=== PATIENT | female | born 1940 | race Caucasian/White ===

== ENCOUNTER → 2017-12-26 | Outpatient (CLI) | payer MEDICARE ==
[~2017-12-26] MED LIST: ACETAMINOPHEN-1 EAC1 PO; ACETAMINOPHEN-120 ML PO; ALENDRONATE SOD70 MG PO; AMLODIPINE BESYL5 MG; AMOXICILLIN875 MG PO; BIOTIN2500 MCG PO; CELEXA 10 MG TA10 M1 PO; CIPROFLOXACIN500 M1 PO; COZAAR 50 MG TA50 M1; ESTRADIOL 1 MG T1 M1 PO; FISH OIL 1,001000 M2 PO; IBUPROFEN200 M2 PO; MIRALAX17 GM PO; MOBIC15 MG PO; MULTIVITAMINS1 EAC7 PO; NEXIUM40 MG PO; OMEPRAZOLE20 M2 PO; OXYBUTYNIN 5 MG5 M2 PO; PERCOCET 5-3251 EACH PO; PROAIR HFA8.5 GM IH; PROAIR HFA8.5 GM INH; PROZAC20 MG PO; PYRIDIUM200 MG PO; TRIAMTERENE-HC1 EAC2 PO; VANCO 1.51.5 GM/250 IV; VITAMIN D400 UNI1 PO; ZOFRAN ODT4 MG PO; ZPAK PO
[2017-12-26 09:37] LABS: ABSOLUTE EOSINOPHILS 0.1 thou/uL (0.0-0.7); ABSOLUTE MONOCYTES 0.4 thou/uL (0.0-1.2); ABSOLUTE NEUTROPHILS 2.9 thou/uL (1.6-8.1); EOSINOPHILS 2.8 %; HEMATOCRIT 41.7 % (37.0-47.0); HEMOGLOBIN 13.9 gm/dL (12.0-15.0); LYMPHOCYTES 23.1 %; MCH 31.3 pg (26.0-34.0); MCHC 33.3 g/dL (28.0-37.0); MCV 94.2 fL (80.0-100.0); MONOCYTES 8.1 %; MPV 8.1 fl. (7.2-11.1); NUCLEATED RBCS 0 /100WBC; PLATELET COUNT* 303 thou/uL (150-400); RBC 4.43 mil/uL (4.20-5.00); WBC 4.4 thou/uL (4.0-11.0)
[2017-12-26 10:20] LABS: ALBUMIN 3.3 g/dL (3.4-5.0); ALKALINE PHOSPHATASE 55 U/L (46-116); ANION GAP 5 mmol/L (7-16); BUN 26 mg/dL (7-18); CALCIUM 8.8 mg/dL (8.5-10.1); CHLORIDE 104 mmol/L (98-107); CHOLESTEROL 176 mg/dL (<200); CO2 31 mmol/L (21-32); CREATININE 0.9 mg/dL (0.6-1.3); GLUCOSE 98 mg/dL (70-99); HDL CHOLESTEROL 56 mg/dL (>40); LDL CHOLESTEROL 105 mg/dL (<100); POTASSIUM 3.6 mmol/L (3.5-5.1); SGOT 15 U/L (15-37); SGPT 22 U/L (30-65); SODIUM 140 mmol/L (136-145); TC:HDL 3.1 Ratio (Not establshd); TOTAL BILIRUBIN 0.4 mg/dL (<0.1-1.0); TOTAL PROTEIN 6.9 g/dL (6.4-8.2); TRIGLYCERIDE 75 mg/dL (<150); URIC ACID* 5.8 mg/dL (2.6-7.2); VLDL 15 mg/dL (<40)
[2017-12-26 10:22] LABS: SERUM ASSESSMENT Clear
[2017-12-26 11:58] LABS: URINE BILIRUBIN NEGATIVE (Negative); URINE BLOOD NEGATIVE (Negative); URINE CLARITY SL CLOUDY; URINE COLOR YELLOW; URINE GLUCOSE-RANDOM NEGATIVE (Negative); URINE KETONES NEGATIVE (Negative); URINE LEUKOCYTES-REFLEX TRACE (Negative); URINE PROTEIN NEGATIVE (Negative); URINE SPECIFIC GRAVITY 1.025 (1.005-1.030); URINE UROBILINOGEN 0.2 E.U./dl (0.2-1.0)
[2017-12-26 11:59] LABS: URINE NITRITE-REFLEX POSITIVE (Negative)
[2017-12-26 12:11] LABS: SQUAMOUS >10 Many /LPF (0-3)
[2017-12-26 12:12] LABS: URINE WBC-REFLEX 6-15 Few /HPF (0-5); WBC CLUMPS Few (None Seen)
[2017-12-26 12:13] LABS: BACTERIA-REFLEX >30 Many /HPF (None Seen); MUCUS 0-3 Light strn/LPF (None Seen); URINE RBC 0-2 Rare /HPF (0-2)
[2017-12-26 12:14] LABS: CASTS None Seen /LPF (None Seen); CRYSTALS None Seen /LPF (None Seen)
== END ==
LOC: M.LAB 09:09
PROVIDERS: Internal Medicine
DX: I10 Essential (primary) hypertension (principal); E78.2 Mixed hyperlipidemia; R82.90 Unspecified abnormal findings in urine

== ENCOUNTER → 2018-06-24 | Outpatient (CLI) | payer MEDICARE | LOC: M.INFUS 10:20 | DX: T84.59XA Infection and inflammatory reaction due to other internal joint prosthesis, initial encounter (principal); Y83.8 Other surgical procedures as the cause of abnormal reaction of the patient, or of later complication, without mention of misadventure at the time of the procedure; Y93.89 Activity, other specified; Y92.89 Other specified places as the place of occurrence of the external cause; Y99.8 Other external cause status ==

== ENCOUNTER → 2018-06-25 | Outpatient (CLI) | payer MEDICARE ==
[2018-06-25 11:10] VITALS: BP 118/74
--- NOTE | 2018-06-25 12:37 | NUR ---
ARRIVED AMBULATORY. MADE SELF COMFORTABLE IN RECLINER. RIGHT ARM IN DON CHRIS SHOULDER SLING. LEFT UPPER PICC INTACT AND PATENT. DENEIS ADVERSE REACTION TO PRIOR INFUSION OF SAME. INFUSION COMPLETED AND TOLERATED WELL. PICC FLUSHED. DENIES NEEDS OR QUESTIONS AT DISCHARGE.
== END ==
LOC: M.INFUS 08:40
DX: T84.59XA Infection and inflammatory reaction due to other internal joint prosthesis, initial encounter (principal); Y83.8 Other surgical procedures as the cause of abnormal reaction of the patient, or of later complication, without mention of misadventure at the time of the procedure; Y93.89 Activity, other specified; Y92.89 Other specified places as the place of occurrence of the external cause; Y99.8 Other external cause status

== ENCOUNTER → 2018-06-26 | Outpatient (CLI) | payer MEDICARE ==
[2018-06-26 11:00] VITALS: BP 118/70
== END ==
LOC: M.INFUS 01:46
DX: T84.59XA Infection and inflammatory reaction due to other internal joint prosthesis, initial encounter (principal); Y83.8 Other surgical procedures as the cause of abnormal reaction of the patient, or of later complication, without mention of misadventure at the time of the procedure; Y93.89 Activity, other specified; Y92.89 Other specified places as the place of occurrence of the external cause; Y99.8 Other external cause status

== ENCOUNTER → 2018-06-27 | Outpatient (CLI) | payer MEDICARE ==
[2018-06-27 10:55] VITALS: BP 118/70
== END ==
LOC: M.INFUS 06:08
DX: T84.59XA Infection and inflammatory reaction due to other internal joint prosthesis, initial encounter (principal); Y83.8 Other surgical procedures as the cause of abnormal reaction of the patient, or of later complication, without mention of misadventure at the time of the procedure; Y92.89 Other specified places as the place of occurrence of the external cause; Y99.8 Other external cause status

== ENCOUNTER → 2018-06-28 | Outpatient (CLI) | payer MEDICARE ==
[2018-06-28 10:55] VITALS: BP 116/61
[2018-06-28 12:25] VITALS: BP 118/62
== END ==
LOC: M.INFUS 02:35
DX: T84.59XA Infection and inflammatory reaction due to other internal joint prosthesis, initial encounter (principal); Y83.8 Other surgical procedures as the cause of abnormal reaction of the patient, or of later complication, without mention of misadventure at the time of the procedure; Y93.89 Activity, other specified; Y92.89 Other specified places as the place of occurrence of the external cause; Y99.8 Other external cause status

== ENCOUNTER → 2018-06-29 | Outpatient (CLI) | payer MEDICARE ==
[2018-06-29 10:55] VITALS: BP 105/68
[2018-06-29 11:40] VITALS: BP 108/72
[2018-06-29 12:32] LABS: ABSOLUTE EOSINOPHILS 0.1 thou/uL (0.0-0.7); ABSOLUTE LYMPHOCYTES 1.4 thou/uL (0.8-5.3); ABSOLUTE MONOCYTES 0.6 thou/uL (0.0-1.2); ABSOLUTE NEUTROPHILS 5.2 thou/uL (1.6-8.1); BASOPHILS 0.5 %; EOSINOPHILS 1.8 %; HEMATOCRIT 38.7 % (37.0-47.0); LYMPHOCYTES 18.7 %; MCH 30.9 pg (26.0-34.0); MCHC 33.5 g/dL (28.0-37.0); MCV 92.3 fL (80.0-100.0); MPV 8.1 fl. (7.2-11.1); NUCLEATED RBCS 0 /100WBC; PLATELET COUNT* 370 thou/uL (150-400); RDW-CV 13.1 % (10.5-14.5); WBC 7.3 thou/uL (4.0-11.0)
[2018-06-29 12:44] LABS: CREATININE 0.8 mg/dL (0.6-1.3)
== END ==
LOC: M.INFUS 00:06
PROVIDERS: Orthopaedic Surgery
DX: T84.59XA Infection and inflammatory reaction due to other internal joint prosthesis, initial encounter (principal); Y83.8 Other surgical procedures as the cause of abnormal reaction of the patient, or of later complication, without mention of misadventure at the time of the procedure; Y93.89 Activity, other specified; Y92.89 Other specified places as the place of occurrence of the external cause; Y99.8 Other external cause status

== ENCOUNTER → 2018-06-30 | Outpatient (CLI) | payer MEDICARE ==
[~2018-06-30] MED LIST changes: +CEFADROXIL 500500 M1 PO; +CEFTRIAXONE2 G1 IVPB; -COZAAR 50 MG TA50 M1; +COZAAR 50 MG TA50 M1 PO; +DILAUDID2 MG PO; +FLONASE 0.05%50 MCG NASAL; +HYDROCHLOROTHIA25 M2 PO; +RIFADIN300 MG PO; +SENOKOT-S TABL1 EACH PO; +SINGULAIR 10 MG10 M1 PO; +SYSTANE 0.3-0.1 EACH OPHTHALMIC; +TYLENOL EXTRA500 MG PO; +VITAMIN D3400 UNIT PO; -VITAMIN D400 UNI1 PO
== END ==
LOC: M.INFUS 10:07
DX: T84.59XA Infection and inflammatory reaction due to other internal joint prosthesis, initial encounter (principal); Y83.8 Other surgical procedures as the cause of abnormal reaction of the patient, or of later complication, without mention of misadventure at the time of the procedure; Y93.89 Activity, other specified; Y92.89 Other specified places as the place of occurrence of the external cause; Y99.8 Other external cause status

== ENCOUNTER → 2018-07-01 | Outpatient (CLI) | payer MEDICARE | LOC: M.INFUS 09:59 | DX: T84.59XA Infection and inflammatory reaction due to other internal joint prosthesis, initial encounter (principal); Y83.8 Other surgical procedures as the cause of abnormal reaction of the patient, or of later complication, without mention of misadventure at the time of the procedure; Y93.89 Activity, other specified; Y92.89 Other specified places as the place of occurrence of the external cause; Y99.8 Other external cause status ==

== ENCOUNTER → 2018-07-02 | Outpatient (CLI) | payer MEDICARE | LOC: M.INFUS 09:56 | DX: T84.59XA Infection and inflammatory reaction due to other internal joint prosthesis, initial encounter (principal); Y83.8 Other surgical procedures as the cause of abnormal reaction of the patient, or of later complication, without mention of misadventure at the time of the procedure; Y93.89 Activity, other specified; Y92.89 Other specified places as the place of occurrence of the external cause; Y99.8 Other external cause status ==

== ENCOUNTER → 2018-07-03 | Outpatient (CLI) | payer MEDICARE ==
[2018-07-03 08:45] VITALS: BP 122/75
--- NOTE | 2018-07-03 10:33 | NUR ---
ARRIVED AMBULATORY. MADE SELF COMFORTABLE IN RECLINER. PICC INTACT AND PATENT INFUSION COMPLETED AND TOLERATED WELL.
== END ==
LOC: M.INFUS 05:01
DX: T84.59XA Infection and inflammatory reaction due to other internal joint prosthesis, initial encounter (principal); I10 Essential (primary) hypertension; K21.9 Gastro-esophageal reflux disease without esophagitis; Y79.2 Prosthetic and other implants, materials and accessory orthopedic devices associated with adverse incidents; Y92.89 Other specified places as the place of occurrence of the external cause

== ENCOUNTER → 2018-07-08 | Outpatient (CLI) | payer MEDICARE | LOC: M.INFUS 09:35 | DX: T84.59XA Infection and inflammatory reaction due to other internal joint prosthesis, initial encounter (principal); I10 Essential (primary) hypertension; K21.9 Gastro-esophageal reflux disease without esophagitis; Y79.2 Prosthetic and other implants, materials and accessory orthopedic devices associated with adverse incidents; Y92.89 Other specified places as the place of occurrence of the external cause ==

== ENCOUNTER → 2018-07-09 | Outpatient (CLI) | payer MEDICARE ==
[2018-07-09 11:05] VITALS: BP 131/70
== END ==
LOC: M.INFUS 11:11
DX: T84.59XA Infection and inflammatory reaction due to other internal joint prosthesis, initial encounter (principal); I10 Essential (primary) hypertension; K21.9 Gastro-esophageal reflux disease without esophagitis; Y79.2 Prosthetic and other implants, materials and accessory orthopedic devices associated with adverse incidents; Y92.89 Other specified places as the place of occurrence of the external cause

== ENCOUNTER → 2018-07-10 | Outpatient (CLI) | payer MEDICARE ==
[2018-07-10 11:08] VITALS: BP 124/74
== END ==
LOC: M.INFUS 05:09
DX: T84.59XA Infection and inflammatory reaction due to other internal joint prosthesis, initial encounter (principal); I10 Essential (primary) hypertension; K21.9 Gastro-esophageal reflux disease without esophagitis; Y79.2 Prosthetic and other implants, materials and accessory orthopedic devices associated with adverse incidents; Y92.89 Other specified places as the place of occurrence of the external cause

== ENCOUNTER → 2018-07-11 | Outpatient (CLI) | payer MEDICARE ==
[2018-07-11 11:05] VITALS: BP 124/78
== END ==
LOC: M.INFUS 05:12
DX: T84.59XA Infection and inflammatory reaction due to other internal joint prosthesis, initial encounter (principal); I10 Essential (primary) hypertension; K21.9 Gastro-esophageal reflux disease without esophagitis; Y79.2 Prosthetic and other implants, materials and accessory orthopedic devices associated with adverse incidents; Y92.89 Other specified places as the place of occurrence of the external cause

== ENCOUNTER → 2018-07-12 | Outpatient (CLI) | payer MEDICARE | LOC: M.INFUS 05:29 | DX: T84.59XA Infection and inflammatory reaction due to other internal joint prosthesis, initial encounter (principal); I10 Essential (primary) hypertension; K21.9 Gastro-esophageal reflux disease without esophagitis; Y79.2 Prosthetic and other implants, materials and accessory orthopedic devices associated with adverse incidents; Y92.89 Other specified places as the place of occurrence of the external cause ==

== ENCOUNTER → 2018-07-13 | Outpatient (CLI) | payer MEDICARE ==
[2018-07-13 11:10] VITALS: BP 122/74
[2018-07-13 11:23] LABS: ABSOLUTE BASOPHILS 0.1 thou/uL (0.0-0.2); ABSOLUTE EOSINOPHILS 0.2 thou/uL (0.0-0.7); ABSOLUTE LYMPHOCYTES 1.2 thou/uL (0.8-5.3); ABSOLUTE MONOCYTES 0.6 thou/uL (0.0-1.2); ABSOLUTE NEUTROPHILS 4.9 thou/uL (1.6-8.1); BASOPHILS 0.9 %; EOSINOPHILS 2.7 %; HEMATOCRIT 36.8 % (37.0-47.0); HEMOGLOBIN 12.6 gm/dL (12.0-15.0); LYMPHOCYTES 17.6 %; MCH 31.7 pg (26.0-34.0); MCHC 34.3 g/dL (28.0-37.0); MCV 92.3 fL (80.0-100.0); MONOCYTES 8.7 %; MPV 7.9 fl. (7.2-11.1); NUCLEATED RBCS 0 /100WBC; PLATELET COUNT* 394 thou/uL (150-400); POLYS 70.1 %; RBC 3.98 mil/uL (4.20-5.00); RDW-CV 13.5 % (10.5-14.5); WBC 6.9 thou/uL (4.0-11.0)
[2018-07-13 11:37] LABS: CREATININE 0.8 mg/dL (0.6-1.3)
== END ==
LOC: M.INFUS 04:40
DX: T84.59XA Infection and inflammatory reaction due to other internal joint prosthesis, initial encounter (principal); I10 Essential (primary) hypertension; K21.9 Gastro-esophageal reflux disease without esophagitis; Y79.2 Prosthetic and other implants, materials and accessory orthopedic devices associated with adverse incidents; Y92.89 Other specified places as the place of occurrence of the external cause

== ENCOUNTER → 2018-07-14 | Outpatient (CLI) | payer MEDICARE | LOC: M.INFUS 09:43 | DX: T84.59XA Infection and inflammatory reaction due to other internal joint prosthesis, initial encounter (principal); I10 Essential (primary) hypertension; K21.9 Gastro-esophageal reflux disease without esophagitis; Y79.2 Prosthetic and other implants, materials and accessory orthopedic devices associated with adverse incidents; Y92.89 Other specified places as the place of occurrence of the external cause ==

== ENCOUNTER 2018-07-15 13:16 | Emergency (ER) | payer MEDICARE ==
[~2018-07-15] VITALS: Ht 160 cm; Wt 63.5 kg
[~2018-07-15 13:16] MED LIST changes: -CEFADROXIL 500500 M1 PO; -CEFTRIAXONE2 G1 IVPB; -DILAUDID2 MG PO; -FLONASE 0.05%50 MCG NASAL; -HYDROCHLOROTHIA25 M2 PO; -RIFADIN300 MG PO; -SENOKOT-S TABL1 EACH PO; -SINGULAIR 10 MG10 M1 PO; -SYSTANE 0.3-0.1 EACH OPHTHALMIC; -TYLENOL EXTRA500 MG PO
[2018-07-15] MEDS ORDERED: RIFADIN300 MG PO (13:40)
[2018-07-15 16:23] VITALS: BP 121/59
== END 2018-07-15 16:23 | disposition home or self-care (01) ==
LOC: M.ERS 13:16
DX: S43.084A Other dislocation of right shoulder joint, initial encounter (principal); I10 Essential (primary) hypertension; Z90.710 Acquired absence of both cervix and uterus; Z96.651 Presence of right artificial knee joint; Z96.611 Presence of right artificial shoulder joint; Z88.5 Allergy status to narcotic agent; Z88.1 Allergy status to other antibiotic agents; Z88.2 Allergy status to sulfonamides; X58.XXXA Exposure to other specified factors, initial encounter; Y93.89 Activity, other specified; Y92.89 Other specified places as the place of occurrence of the external cause; Y99.8 Other external cause status

== ENCOUNTER → 2018-07-15 | Outpatient (CLI) | payer MEDICARE | LOC: M.INFUS 10:10 | DX: T84.59XA Infection and inflammatory reaction due to other internal joint prosthesis, initial encounter (principal); I10 Essential (primary) hypertension; K21.9 Gastro-esophageal reflux disease without esophagitis; Y79.2 Prosthetic and other implants, materials and accessory orthopedic devices associated with adverse incidents; Y92.89 Other specified places as the place of occurrence of the external cause ==

== ENCOUNTER → 2018-07-16 | Outpatient (CLI) | payer MEDICARE ==
[~2018-07-16] MED LIST changes: +CEFADROXIL 500500 M1 PO; +CEFTRIAXONE2 G1 IVPB; +DILAUDID2 MG PO; +FLONASE 0.05%50 MCG NASAL; +HYDROCHLOROTHIA25 M2 PO; +RIFADIN300 MG PO; +SENOKOT-S TABL1 EACH PO; +SINGULAIR 10 MG10 M1 PO; +SYSTANE 0.3-0.1 EACH OPHTHALMIC; +TYLENOL EXTRA500 MG PO
[2018-07-16 11:20] VITALS: BP 103/58
--- NOTE | 2018-07-16 12:10 | NUR ---
Pt ambulated in to infusion and seated self in recliner. Has Right arm in sling and did state she had been in ER this weekend due to injury with this arm. Pt denies pain at this time. Left upper arm PICC was flushed and had brisk blood return. IVPB of Rocephin 2 grams was given IVPB starting at 1130 and completed at 1153. Pt then ambulated out for home at 1210. no reaction noted from patient. Has been on this antibotic sence july 06
== END ==
LOC: M.INFUS 01:05
DX: T84.59XA Infection and inflammatory reaction due to other internal joint prosthesis, initial encounter (principal); I10 Essential (primary) hypertension; K21.9 Gastro-esophageal reflux disease without esophagitis; Y79.2 Prosthetic and other implants, materials and accessory orthopedic devices associated with adverse incidents; Y92.89 Other specified places as the place of occurrence of the external cause

== ENCOUNTER → 2018-07-17 | Outpatient (CLI) | payer MEDICARE ==
[2018-07-17 11:45] VITALS: BP 117/57
== END ==
LOC: M.INFUS 05:17
DX: T84.59XA Infection and inflammatory reaction due to other internal joint prosthesis, initial encounter (principal); I10 Essential (primary) hypertension; K21.9 Gastro-esophageal reflux disease without esophagitis; Y79.2 Prosthetic and other implants, materials and accessory orthopedic devices associated with adverse incidents; Y92.89 Other specified places as the place of occurrence of the external cause

== ENCOUNTER → 2018-07-18 | Outpatient (CLI) | payer MEDICARE ==
[2018-07-18 11:01] VITALS: BP 122/75
[2018-07-18 11:29] VITALS: BP 122/62
== END ==
LOC: M.INFUS 05:20
DX: T84.59XA Infection and inflammatory reaction due to other internal joint prosthesis, initial encounter (principal); I10 Essential (primary) hypertension; K21.9 Gastro-esophageal reflux disease without esophagitis; Y79.2 Prosthetic and other implants, materials and accessory orthopedic devices associated with adverse incidents; Y92.89 Other specified places as the place of occurrence of the external cause

== ENCOUNTER → 2018-07-19 | Outpatient (CLI) | payer MEDICARE ==
[2018-07-19 11:05] VITALS: BP 148/76
[2018-07-19 11:33] VITALS: BP 142/72
== END ==
LOC: M.INFUS 05:02
DX: T84.59XA Infection and inflammatory reaction due to other internal joint prosthesis, initial encounter (principal); I10 Essential (primary) hypertension; K21.9 Gastro-esophageal reflux disease without esophagitis; Y79.2 Prosthetic and other implants, materials and accessory orthopedic devices associated with adverse incidents; Y92.89 Other specified places as the place of occurrence of the external cause

== ENCOUNTER 2018-07-20 11:48 | Observation (INO) | payer MEDICARE ==
[~2018-07-20] VITALS: Ht 160 cm; Wt 63.0 kg
[~2018-07-20 11:48] MED LIST changes: -CEFADROXIL 500500 M1 PO; -CEFTRIAXONE2 G1 IVPB; -DILAUDID2 MG PO; -FLONASE 0.05%50 MCG NASAL; -HYDROCHLOROTHIA25 M2 PO; -SENOKOT-S TABL1 EACH PO; -SINGULAIR 10 MG10 M1 PO; -SYSTANE 0.3-0.1 EACH OPHTHALMIC; -TYLENOL EXTRA500 MG PO
[2018-07-20 11:52] VITALS: BP 137/69
--- NOTE | 2018-07-20 12:45 | NUR ---
THIS NURSE RECEIVED REPORT FROM JUAN AUGUSTINE. THIS NURSE TO ASSUME PT CARE AT THIS TIME.
--- NOTE | 2018-07-20 13:53 | NUR ---
DR. CURIEL AT BEDSIDE. PT AND PT MADE AWARE OF NEED FOR ADMISSION. BOTH STATED UNDERSTANDING AND AGREEABLE.
--- NOTE | 2018-07-20 17:46 | NUR ---
REPORT GIVEN TO JUAN LOPEZ WHO IS TO ASSUME PT CARE INPATIENT NURSE.
[2018-07-20 17:47] VITALS: BP 124/49
[2018-07-20 18:00] VITALS: BP 131/51
[2018-07-20] MEDS ORDERED: ESTRADIOL 1 MG T1 M1 PO (20:33)
[2018-07-20] MEDS ORDERED: SINGULAIR 10 MG10 M1 PO (20:34)
[2018-07-20] MEDS ORDERED: CEFTRIAXONE2 G1 IVPB (21:41)
[2018-07-20] MEDS ORDERED: DILAUDID2 MG PO (21:43)
[2018-07-20] MEDS ORDERED: CEFADROXIL 500500 M1 PO (21:43)
[2018-07-20] MEDS ORDERED: TYLENOL EXTRA500 MG PO (21:44)
[2018-07-20] MEDS ORDERED: SENOKOT-S TABL1 EACH PO (21:44)
[2018-07-20] MEDS ORDERED: FLONASE 0.05%50 MCG NASAL (21:46)
[2018-07-20] MEDS ORDERED: SYSTANE 0.3-0.1 EACH OPHTHALMIC (21:48)
[2018-07-20 23:41] VITALS: BP 125/60
--- NOTE | 2018-07-21 04:38 | NUR ---
PATIENT PARTIALLY PROGRESSING TOWARDS GOALS: PATIENT RECEIVED TYLENOL FOR PAIN RELIEF OF RIGHT SHOULDER. RIGHT ARM REMAINS IN SLING. VSS ON ROOM AIR. PATIENT TO BE EVALUATED BY [facility] TODAY TO DETERMINE PLAN OF CARE. PATIENT AND FAMILY AWARE. NPO POST MIDNIGHT. PATIENT STATES IF A REDUCTION OF THE DISLOCATED SHOULDER CANNOT BE PERFORMED OR IS UNSUCCESSFUL, SHE REQUESTS TO BE TREATED AT THE [facility], THIS IS WHERE SHE HAS HAD HER PREVIOUS SURGERIES. MESSAGE RELAYED TO ORTHOPEDIC RESIDENT. CALL LIGHT WITHIN REACH
[2018-07-21] MEDS ORDERED: HYDROCHLOROTHIA25 M2 PO (06:20)
[2018-07-21 08:00] VITALS: BP 134/71
[2018-07-21 10:44] VITALS: BP 134/71
[2018-07-21 10:52] VITALS: BP 134/71
--- NOTE | 2018-07-21 12:07 | NUR ---
ASSUMED CARE OF PATIENT THIS AM AT 0730. PATIENT IS ALERT AND ORIENTED X 4. SHE DENIES PAIN THIS AM. ORTHOSURG DOCTORS IN TO ROUND THIS AM AND IMMOBILIZER ORDERED AND PLACED ON THE PATIENT. DR ARIAS WAS IN TO ROUND AND DISCHARGE ORDERS WERE WRITTEN. PATIENT GIVEN AM MEDICATIONS AND IV ANTIBIOTIC PRIOR TO DISCHARGE. PATIENT DISCHARGED TO HOME WITH BELONGINGS.
== END 2018-07-21 11:26 | disposition home or self-care (01) ==
LOC: M.ERS 11:48 → M.2W 14:14 → M.TBA-ER 14:14 → M.2W 18:06
PROVIDERS: ADMIT Internal Medicine
DX: S43.004A Unspecified dislocation of right shoulder joint, initial encounter (principal); S43.001A Unspecified subluxation of right shoulder joint, initial encounter; I10 Essential (primary) hypertension; Z88.2 Allergy status to sulfonamides; Z88.8 Allergy status to other drugs, medicaments and biological substances; Z90.711 Acquired absence of uterus with remaining cervical stump; Z96.611 Presence of right artificial shoulder joint; X50.0XXA Overexertion from strenuous movement or load, initial encounter; Y93.89 Activity, other specified; Y92.9 Unspecified place or not applicable

== ENCOUNTER → 2018-07-20 | Outpatient (CLI) | payer MEDICARE ==
[2018-07-20 10:55] VITALS: BP 127/65
[2018-07-20 11:45] VITALS: BP 122/66
[2018-07-20 12:59] LABS: ABSOLUTE EOSINOPHILS 0.1 thou/uL (0.0-0.7); ABSOLUTE MONOCYTES 0.5 thou/uL (0.0-1.2); ABSOLUTE NEUTROPHILS 3.7 thou/uL (1.6-8.1); BASOPHILS 0.6 %; EOSINOPHILS 2.5 %; HEMATOCRIT 37.6 % (37.0-47.0); HEMOGLOBIN 12.7 gm/dL (12.0-15.0); LYMPHOCYTES 18.7 %; MCH 31.3 pg (26.0-34.0); MCHC 33.8 g/dL (28.0-37.0); MCV 92.7 fL (80.0-100.0); MONOCYTES 9.2 %; MPV 8.3 fl. (7.2-11.1); NUCLEATED RBCS 0 /100WBC; PLATELET COUNT* 344 thou/uL (150-400); RBC 4.05 mil/uL (4.20-5.00); RDW-CV 13.8 % (10.5-14.5); WBC 5.3 thou/uL (4.0-11.0)
[2018-07-20 13:09] LABS: CREATININE 0.7 mg/dL (0.6-1.3)
== END ==
LOC: M.INFUS 04:57
PROVIDERS: Orthopaedic Surgery
DX: T84.59XA Infection and inflammatory reaction due to other internal joint prosthesis, initial encounter (principal); I10 Essential (primary) hypertension; K21.9 Gastro-esophageal reflux disease without esophagitis; Y79.2 Prosthetic and other implants, materials and accessory orthopedic devices associated with adverse incidents; Y92.89 Other specified places as the place of occurrence of the external cause

== ENCOUNTER → 2018-07-22 | Outpatient (CLI) | payer MEDICARE ==
[~2018-07-22] MED LIST changes: +CEFADROXIL 500500 M1 PO; +CEFTRIAXONE2 G1 IVPB; +DILAUDID2 MG PO; +FLONASE 0.05%50 MCG NASAL; +HYDROCHLOROTHIA25 M2 PO; +SENOKOT-S TABL1 EACH PO; +SINGULAIR 10 MG10 M1 PO; +SYSTANE 0.3-0.1 EACH OPHTHALMIC; +TYLENOL EXTRA500 MG PO
[2018-07-22 11:15] VITALS: BP 119/67
--- NOTE | 2018-07-22 11:49 | NUR ---
ASSUMED CARE OF PT @ 1115.PT IS A/O X4,VSS.MEDICATION OBTAINED FROM THE PHARMACY AND INFUSED PER ORDERS.WILL CONTINUE TO MONITOR.
[2018-07-22 12:15] VITALS: BP 125/65
--- NOTE | 2018-07-22 12:20 | NUR ---
PT INFUSION COMPLETED WITH NO COMPLICATIONS.VSS.PT WALKED OUT TO PERSONAL VEHICLE.ALL PERSONAL BELONGINGS TAKEN WITH PT.
== END ==
LOC: M.INFUS 10:18
DX: T84.59XA Infection and inflammatory reaction due to other internal joint prosthesis, initial encounter (principal); I10 Essential (primary) hypertension; K21.9 Gastro-esophageal reflux disease without esophagitis; Y79.2 Prosthetic and other implants, materials and accessory orthopedic devices associated with adverse incidents; Y92.89 Other specified places as the place of occurrence of the external cause

== ENCOUNTER → 2018-07-23 | Outpatient (CLI) | payer MEDICARE ==
[2018-07-23 11:04] VITALS: BP 124/89
== END ==
LOC: M.INFUS 00:39
DX: T84.59XA Infection and inflammatory reaction due to other internal joint prosthesis, initial encounter (principal); I10 Essential (primary) hypertension; K21.9 Gastro-esophageal reflux disease without esophagitis; Y79.2 Prosthetic and other implants, materials and accessory orthopedic devices associated with adverse incidents; Y92.89 Other specified places as the place of occurrence of the external cause

== ENCOUNTER → 2018-07-24 | Outpatient (CLI) | payer MEDICARE ==
[2018-07-24 11:00] VITALS: BP 132/78
--- NOTE | 2018-07-24 12:47 | NUR ---
ARRIVED AMBULATORY. MADE SELF COMFORTABLE IN RECLINER. PICC INTACT AND PATENT. INFUSION COMPLETED AND TOLERATED WELL. COMPLAINT OF SHOULDER STILL BEING DEISLOCATED.
== END ==
LOC: M.INFUS 07:54
DX: T84.59XA Infection and inflammatory reaction due to other internal joint prosthesis, initial encounter (principal); I10 Essential (primary) hypertension; K21.9 Gastro-esophageal reflux disease without esophagitis; Y79.2 Prosthetic and other implants, materials and accessory orthopedic devices associated with adverse incidents; Y92.89 Other specified places as the place of occurrence of the external cause

== ENCOUNTER → 2018-07-25 | Outpatient (CLI) | payer MEDICARE ==
[2018-07-25 10:30] VITALS: BP 122/78
--- NOTE | 2018-07-25 12:43 | NUR ---
PICC LINE INTACT GOOD BRISK BLOOD RETURN AND EASY FLUSH. INFUSION COMPLETED AND TOELRATED WELL. DENEIS NEEDS AT DISCHARGE.
== END ==
LOC: M.INFUS 00:37
DX: T84.59XA Infection and inflammatory reaction due to other internal joint prosthesis, initial encounter (principal); I10 Essential (primary) hypertension; K21.9 Gastro-esophageal reflux disease without esophagitis; Y79.2 Prosthetic and other implants, materials and accessory orthopedic devices associated with adverse incidents; Y92.89 Other specified places as the place of occurrence of the external cause

== ENCOUNTER → 2018-07-26 | Outpatient (CLI) | payer MEDICARE ==
--- NOTE | 2018-07-26 12:13 | NUR ---
ARRIVED AMBULATORY. MADE SELF COMFORTABLE IN RECLINER. PICC LINE INTACT AND PATENT PT COMPLAINT OF RIGHT SHOULDER STILL CAUSING PAIN. INFUSION COMPLETED AND TOLERATED WELL.
== END ==
LOC: M.INFUS 00:35
DX: T84.59XA Infection and inflammatory reaction due to other internal joint prosthesis, initial encounter (principal); I10 Essential (primary) hypertension; K21.9 Gastro-esophageal reflux disease without esophagitis; Y79.2 Prosthetic and other implants, materials and accessory orthopedic devices associated with adverse incidents; Y92.89 Other specified places as the place of occurrence of the external cause

== ENCOUNTER → 2018-07-27 | Outpatient (CLI) | payer MEDICARE ==
[2018-07-27 10:59] VITALS: BP 144/70
[2018-07-27 11:23] LABS: ABSOLUTE EOSINOPHILS 0.2 thou/uL (0.0-0.7); ABSOLUTE LYMPHOCYTES 0.9 thou/uL (0.8-5.3); ABSOLUTE MONOCYTES 0.4 thou/uL (0.0-1.2); ABSOLUTE NEUTROPHILS 3.1 thou/uL (1.6-8.1); BASOPHILS 0.6 %; EOSINOPHILS 4.4 %; HEMATOCRIT 39.1 % (37.0-47.0); HEMOGLOBIN 13.4 gm/dL (12.0-15.0); LYMPHOCYTES 19.4 %; MCH 31.7 pg (26.0-34.0); MCHC 34.3 g/dL (28.0-37.0); MCV 92.4 fL (80.0-100.0); MONOCYTES 8.9 %; NUCLEATED RBCS 0 /100WBC; PLATELET COUNT* 296 thou/uL (150-400); POLYS 66.7 %; RBC 4.23 mil/uL (4.20-5.00); RDW-CV 13.5 % (10.5-14.5); WBC 4.7 thou/uL (4.0-11.0)
[2018-07-27 11:36] LABS: CREATININE 0.7 mg/dL (0.6-1.3)
--- NOTE | 2018-07-27 12:12 | NUR ---
ARRIVED AMBULATORY. MADE SELF COMFORTABLE. PICC INTACT AND PATENT. WEEKLY LABS DRAWN AND DRESSING CHANGE COMPLETED. INFUSION COMPLETED AND TOERATED WELL. DENIES ADVERSE REACTION TO MULTIPLE INFUSIONS OF SAME. DENIES NEEDS AT DISCHARGE.
== END ==
LOC: M.INFUS 00:33
PROVIDERS: Orthopaedic Surgery
DX: T84.59XA Infection and inflammatory reaction due to other internal joint prosthesis, initial encounter (principal); I10 Essential (primary) hypertension; K21.9 Gastro-esophageal reflux disease without esophagitis; Y79.2 Prosthetic and other implants, materials and accessory orthopedic devices associated with adverse incidents; Y92.89 Other specified places as the place of occurrence of the external cause

== ENCOUNTER → 2018-07-28 | Outpatient (CLI) | payer MEDICARE | LOC: M.INFUS 09:11 | DX: T84.59XA Infection and inflammatory reaction due to other internal joint prosthesis, initial encounter (principal); I10 Essential (primary) hypertension; K21.9 Gastro-esophageal reflux disease without esophagitis; Y79.2 Prosthetic and other implants, materials and accessory orthopedic devices associated with adverse incidents; Y92.89 Other specified places as the place of occurrence of the external cause ==

== ENCOUNTER → 2018-07-29 | Outpatient (CLI) | payer MEDICARE | LOC: M.INFUS 09:22 | DX: T84.59XA Infection and inflammatory reaction due to other internal joint prosthesis, initial encounter (principal); I10 Essential (primary) hypertension; K21.9 Gastro-esophageal reflux disease without esophagitis; Y79.2 Prosthetic and other implants, materials and accessory orthopedic devices associated with adverse incidents; Y92.89 Other specified places as the place of occurrence of the external cause ==

== ENCOUNTER → 2018-07-30 | Outpatient (CLI) | payer MEDICARE ==
[2018-07-30 11:00] VITALS: BP 124/74
--- NOTE | 2018-07-30 11:46 | NUR ---
ARRIVED AMBULATORY. MADE SELF COMFORTABLE IN RECLINER. PICC INTACT AND PATENT. DENEIS ADVERSE REACTION TO MULTIPLE INFUSIONS OF SAME. INFUSION COMPLETED AND TOLERATED WELL. DENIES QUESTIONS OR NEEDS AT DISCHARGE.
== END ==
LOC: M.INFUS 01:17
DX: T84.59XA Infection and inflammatory reaction due to other internal joint prosthesis, initial encounter (principal); I10 Essential (primary) hypertension; K21.9 Gastro-esophageal reflux disease without esophagitis; Y79.2 Prosthetic and other implants, materials and accessory orthopedic devices associated with adverse incidents; Y92.89 Other specified places as the place of occurrence of the external cause

== ENCOUNTER → 2018-07-31 | Outpatient (CLI) | payer MEDICARE ==
[2018-07-31 10:55] VITALS: BP 117/74
--- NOTE | 2018-07-31 11:57 | NUR ---
DENIES ADVERSE REACTION TO MULTIPLE PRIOR INFUSION OF SAME. PICC INTACT AND PATENT. INFUSION COMPLETED AND TOLERATED WELL.
== END ==
LOC: M.INFUS 05:26
DX: T84.59XA Infection and inflammatory reaction due to other internal joint prosthesis, initial encounter (principal); I10 Essential (primary) hypertension; K21.9 Gastro-esophageal reflux disease without esophagitis; Y79.2 Prosthetic and other implants, materials and accessory orthopedic devices associated with adverse incidents; Y92.89 Other specified places as the place of occurrence of the external cause

== ENCOUNTER → 2018-08-01 | Outpatient (CLI) | payer MEDICARE ==
[2018-08-01 08:55] VITALS: BP 142/67
--- NOTE | 2018-08-01 09:13 | NUR ---
ARRIVED AMBULATORY. MADE SLEF COMFORTABLE IN RECLINER. PICC INTACT AND PATENT. INFUSION COMPLETED AND TOLERATED WELL.
== END ==
LOC: M.INFUS 05:15
DX: T84.59XA Infection and inflammatory reaction due to other internal joint prosthesis, initial encounter (principal); I10 Essential (primary) hypertension; K21.9 Gastro-esophageal reflux disease without esophagitis; Y79.2 Prosthetic and other implants, materials and accessory orthopedic devices associated with adverse incidents; Y92.89 Other specified places as the place of occurrence of the external cause

== ENCOUNTER → 2018-10-01 | Outpatient (CLI) | payer MEDICARE ==
[2018-10-01 14:05] LABS: ABSOLUTE EOSINOPHILS 0.3 thou/uL (0.0-0.7); ABSOLUTE LYMPHOCYTES 1.3 thou/uL (0.8-5.3); ABSOLUTE MONOCYTES 0.6 thou/uL (0.0-1.2); ABSOLUTE NEUTROPHILS 3.5 thou/uL (1.6-8.1); BASOPHILS 0.6 %; EOSINOPHILS 5.4 %; HEMATOCRIT 43.3 % (37.0-47.0); HEMOGLOBIN 14.9 gm/dL (12.0-15.0); LYMPHOCYTES 22.4 %; MCHC 34.5 g/dL (28.0-37.0); MCV 92.8 fL (80.0-100.0); MPV 7.9 fl. (7.2-11.1); NUCLEATED RBCS 0 /100WBC; PLATELET COUNT* 261 thou/uL (150-400); POLYS 61.6 %; RBC 4.67 mil/uL (4.20-5.00); RDW-CV 13.7 % (10.5-14.5); WBC 5.7 thou/uL (4.0-11.0)
[2018-10-01 14:16] LABS: CREATININE 0.9 mg/dL (0.6-1.3)
== END ==
LOC: M.LAB 13:39
DX: Z51.81 Encounter for therapeutic drug level monitoring (principal); Z79.2 Long term (current) use of antibiotics

== ENCOUNTER → 2018-12-10 | Outpatient (CLI) | payer MEDICARE ==
[2018-12-10 13:35] LABS: ABSOLUTE BASOPHILS 0.1 thou/uL (0.0-0.2); ABSOLUTE EOSINOPHILS 0.1 thou/uL (0.0-0.7); ABSOLUTE LYMPHOCYTES 1.3 thou/uL (0.8-5.3); ABSOLUTE MONOCYTES 0.4 thou/uL (0.0-1.2); ABSOLUTE NEUTROPHILS 4.9 thou/uL (1.6-8.1); BASOPHILS 0.9 %; EOSINOPHILS 1.3 %; HEMOGLOBIN 15.3 gm/dL (12.0-15.0); LYMPHOCYTES 19.7 %; MCH 32.6 pg (26.0-34.0); MCHC 34.9 g/dL (28.0-37.0); MCV 93.4 fL (80.0-100.0); MONOCYTES 5.3 %; MPV 8.1 fl. (7.2-11.1); NUCLEATED RBCS 0 /100WBC; PLATELET COUNT* 292 thou/uL (150-400); POLYS 72.8 %; RBC 4.71 mil/uL (4.20-5.00); RDW-CV 13.2 % (10.5-14.5); WBC 6.7 thou/uL (4.0-11.0)
[2018-12-10 13:49] LABS: CREATININE 0.9 mg/dL (0.6-1.3)
== END ==
LOC: M.LAB 13:13
DX: J40 Bronchitis, not specified as acute or chronic (principal); Z79.2 Long term (current) use of antibiotics

== ENCOUNTER → 2020-01-10 | Outpatient (CLI) | payer MEDICARE ==
[2020-01-10 09:10] LABS: ABSOLUTE BASOPHILS 0.1 thou/uL (0.0-0.2); ABSOLUTE EOSINOPHILS 0.1 thou/uL (0.0-0.7); ABSOLUTE LYMPHOCYTES 1.1 thou/uL (0.8-5.3); ABSOLUTE MONOCYTES 0.4 thou/uL (0.0-1.2); BASOPHILS 1.3 %; EOSINOPHILS 2.1 %; HEMATOCRIT 43.1 % (37.0-47.0); HEMOGLOBIN 14.8 gm/dL (12.0-15.0); LYMPHOCYTES 23.2 %; MCH 31.7 pg (26.0-34.0); MCHC 34.3 g/dL (28.0-37.0); MCV 92.5 fL (80.0-100.0); MPV 7.8 fl. (7.2-11.1); NUCLEATED RBCS 0 /100WBC; PLATELET COUNT* 275 thou/uL (150-400); POLYS 64.4 %; RBC 4.66 mil/uL (4.20-5.00); RDW-CV 13.2 % (10.5-14.5); WBC 4.7 thou/uL (4.0-11.0)
[2020-01-10 09:25] LABS: ALBUMIN 3.6 g/dL (3.4-5.0); ALKALINE PHOSPHATASE 55 U/L (46-116); ANION GAP 5 mmol/L (7-16); BUN 26 mg/dL (7-18); CALCIUM 9.4 mg/dL (8.5-10.1); CHLORIDE 106 mmol/L (98-107); CHOLESTEROL 153 mg/dL (<200); CO2 31 mmol/L (21-32); CREATININE 0.9 mg/dL (0.6-1.3); GLUCOSE 98 mg/dL (70-99); HDL CHOLESTEROL 65 mg/dL (>40); LDL CHOLESTEROL 67 mg/dL (<100); POTASSIUM 4.2 mmol/L (3.5-5.1); SERUM ASSESSMENT Clear; SGOT 18 U/L (15-37); SGPT 29 U/L (30-65); SODIUM 142 mmol/L (136-145); TC:HDL 2.4 Ratio (Not establshd); TOTAL BILIRUBIN 0.5 mg/dL (<0.1-1.0); TOTAL PROTEIN 7.1 g/dL (6.4-8.2); TRIGLYCERIDE 108 mg/dL (<150); VLDL 22 mg/dL (<40)
== END ==
LOC: M.LAB 08:46
PROVIDERS: ATTEND Internal Medicine
DX: E78.2 Mixed hyperlipidemia (principal); I10 Essential (primary) hypertension; M81.0 Age-related osteoporosis without current pathological fracture